=== PATIENT | male | born 1990 | race Hispanic/Latino ===

== ENCOUNTER 2017-11-04 09:43 | Emergency (ER) | payer OTHER ==
[~2017-11-04] VITALS: Ht 185.4 cm; Wt 129.7 kg
[2017-11-04] MEDS ORDERED: KETOROLAC TROMETHAMINE 30 MG/ML VIAL IV STA (10:22)
[2017-11-04] MEDS ORDERED: SODIUM CHLORIDE 0.9% 1000ML 1,000 ML IV SCH (10:30)
[2017-11-04] MEDS ORDERED: MORPHINE SULFATE 2 MG/ML SYR IV STA (11:29)
[2017-11-04] MEDS ORDERED: METRONIDAZOLE 500MG/NS 100ML 100 ML IV ONE (11:30)
[2017-11-04] MEDS ORDERED: CIPROFLOXACIN 400 MG/D5W 200ML 200 ML IV ONE (11:30)
[2017-11-04 12:30] VITALS: BP 169/90
[2017-11-04] MEDS ORDERED: FLAGYL500 MG PO (12:32)
[2017-11-04] MEDS ORDERED: CIPRO500 MG PO (12:32)
[2017-11-04] MEDS ORDERED: ZOFRAN ODT4 MG PO (12:34)
[2017-11-04] MEDS ORDERED: NORCO 7.5-3251 EACH PO (12:36)
== END 2017-11-04 12:53 | disposition home or self-care (01) ==
LOC: FSED 09:43
DX: R10.31 Right lower quadrant pain (principal); R10.32 Left lower quadrant pain; R11.2 Nausea with vomiting, unspecified; K57.32 Diverticulitis of large intestine without perforation or abscess without bleeding; F17.210 Nicotine dependence, cigarettes, uncomplicated
CPT/HCPCS: 74176; 80053; 81003; 85025; 99284; J0744; J1885; J2270

== ENCOUNTER 2017-11-06 01:44 | Inpatient (IN) | payer OTHER ==
[~2017-11-06] VITALS: Ht 185.4 cm; Wt 121.7 kg
[2017-11-06] VITALS (8 sets, daily range): BP systolic 124–140; BP diastolic 57–71
[~2017-11-06 01:44] MED LIST: CIPRO500 MG PO; FLAGYL500 MG PO; NORCO 7.5-3251 EACH PO; ZOFRAN ODT4 MG PO
[2017-11-06] MEDS ORDERED: HYDROMORPHONE 1MG/1ML INJ IV STA (01:57)
[2017-11-06] MEDS ORDERED: PANTOPRAZOLE 40 MG 10ML VIAL IV STA (01:57)
[2017-11-06] MEDS ORDERED: ONDANSETRON HCL INJ 2 MG/ML VIAL IV STA (01:57)
[2017-11-06] MEDS ORDERED: SODIUM CHLORIDE 0.9% 1000ML 1,000 ML IV STA (01:57)
[2017-11-06 02:18] LABS: BASOPHILS # (AUTO) 0.1 (0.0-0.1); BASOPHILS % 0.2 % (0.0-1.0); HEMATOCRIT 39.8 % (38.2-49.6); LYMPHOCYTES # (AUTO) 0.8 (1.0-3.2); LYMPHOCYTES % 3.1 % (18.0-39.1); MEAN CORPUSCULAR HGB CONC 35.2 g/dL (31-35); MEAN CORPUSCULAR VOLUME 85.4 fL (81-99); MONOCYTES # (AUTO) 1.1 (0.2-0.8); MONOCYTES % 4.4 % (4.4-11.3); NEUTROPHILS % 91.7 % (38.7-80.0); PLATELET COUNT 341 x10e3/uL (140-360); RED BLOOD COUNT 4.66 x10e6/uL (4.3-5.7); RED CELL DISTRIBUTION WIDTH 12.1 % (11.7-14.4)
[2017-11-06] MEDS ORDERED: DIATRIZOATE MEGL/DIATRIZOA SOD 30 ML BTL PO ONE (02:19)
[2017-11-06 02:22] LABS: CLARITY,URINE HAZY (CLEAR); COLOR,URINE YELLOW (YELLOW)
[2017-11-06 02:23] LABS: KETONES,URINE 3+ (NEGATIVE); LEUKOCYTE ESTERASE ,URINE TRACE (NEGATIVE); NITRITE,URINE POSITIVE (NEGATIVE); PROTEIN,URINE DIPSTICK 1+ (NEGATIVE)
[2017-11-06 02:24] LABS: BILIRUBIN,URINE 2+ (NEGATIVE); URINE UROBILINOGEN 4 mg/dL (0.2 - 1)
[2017-11-06] MEDS: PIPER-TAZ 3.375 GM 50 ML IV SCH ×4 (02:25→18:14)
[2017-11-06 02:35] LABS: INR 1.16; PROTHROMBIN TIME 13.9 seconds (11.9-14.5)
[2017-11-06 02:37] LABS: EPITHELIAL CELLS,URINE FEW /LPF
[2017-11-06 02:38] LABS: BACTERIA,URINE MODERATE /HPF
[2017-11-06 02:39] LABS: MUCUS,URINE MANY (RARE)
[2017-11-06 02:46] LABS: ALANINE AMINOTRANSFERASE 28 IU/L (0-55); ALBUMIN 3.4 g/dL (3.5-5.0); ALBUMIN/GLOBULIN RATIO 0.8 (0.8-2.0); ALKALINE PHOSPHATASE 85 IU/L (40-150); AMYLASE 21 U/L (25-125); ANION GAP 18.3 mmol/L (8-16); BLOOD UREA NITROGEN 10 mg/dL (7-26); BUN/CREATININE RATIO 13 (6-25); CALCIUM 9.5 mg/dL (8.4-10.2); CARBON DIOXIDE 23 mmol/L (22-29); CHLORIDE 96 mmol/L (98-107); CREATININE, SERUM 0.78 mg/dL (0.72-1.25); EST GLOMERULAR FILTRATION RATE > 60 ML/MIN (60-); GLUCOSE 115 mg/dL (74-118); LIPASE 9 U/L (8-78); MAGNESIUM 1.8 MG/DL (1.3-2.1); POTASSIUM 3.3 mmol/L (3.5-5.1); SODIUM 134 mmol/L (136-145)
[2017-11-06] MEDS: METRONIDAZOLE 500MG/NS 100ML 100 ML IV SCH ×2 (03:05→07:05)
[2017-11-06] MEDS ORDERED: SODIUM CHLORIDE 0.9% 50ML 50 ML ONE (03:11)
[2017-11-06] MEDS ORDERED: IOPAMIDOL 370 MG/ML 200 ML INFUS..BTL INJ ONE (03:11)
[2017-11-06 03:54] LABS: BAND NEUTROPHILS % (MANUAL) 1 %; LYMPHOCYTES % (MANUAL) 3 % (19-48); MONOCYTES % (MANUAL) 3 % (3.4-9.0); NEUTROPHILS % (MANUAL) 93 % (40-74); PLATELET ESTIMATE ADEQUATE; PLATELET MORPHOLOGY COMMENT NORMAL; RBC MORPHOLOGY COMMENT NORMAL
--- NOTE | 2017-11-06 04:04 | Diagnostic Imaging Report ---
CHEST SINGLE (PORTABLE), 11/06/2017 1:57 AM Technique: CHEST SINGLE (PORTABLE) Comparison: None available. Clinical history: Pain Findings: Limited by portable technique and body habitus. Prominent cardiomediastinal silhouette, accentuated by technique. No consolidation or edema. No pleural effusion or pneumothorax. Impression: 1. Lines/Tubes: None 2. No acute abnormality. Signed by: Dr Betty Brcue MD on 11/06/2017 4:01 AM
--- NOTE | 2017-11-06 04:09 | Diagnostic Imaging Report ---
EXAM: CT ABDOMEN/PELVIS W DATE: 11/06/2017 1:57 AM INDICATION: \S\DX'D W/ DIVERTICULITIS, FELT POP NOW SEVERE DIFFUSE PAIN \[id number] \S\[id number] COMPARISON: 07/12/2014, 11/04/2017 TECHNIQUE: The abdomen and pelvis were scanned using a multidetector helical scanner. Coronal and sagittal reformations were obtained. IV Contrast: 100 ml Isovue 300/370 FINDINGS: LOWER THORAX: No consolidations LIVER/BILIARY: No masses. No ductal dilatation. GALLBLADDER: Unremarkable SPLEEN: Unremarkable PANCREAS: Unremarkable ADRENALS: No nodules KIDNEYS: Slightly asymmetric diminished enhancement of the left kidney compared to the right. Mild left pelvocaliectasis without hydronephrosis. GI TRACT: Marked sigmoid wall thickening in area of diverticula. Adjacent inflammatory changes and free fluid (increased from prior) with several scattered foci of extraluminal gas (new from prior, image 70 for example). Mild tethering and reactive thickening of adjacent small bowel and rectum. No bowel obstruction. Normal appendix. VESSELS: Unremarkable PERITONEUM/RETROPERITONEUM: See above LYMPH NODES: Several small reactive inferior mesenteric distribution nodes. REPRODUCTIVE ORGANS/BLADDER: Unremarkable SOFT TISSUES: Unremarkable BONES: No suspicious bone lesions. IMPRESSION: 1. Interval worsening in acute sigmoid diverticulitis with microperforation and reactive segmental proctocolitis. No drainable collection. 2. Delayed left nephrogram and mild left pelvocaliectasis, which may be related to inflammatory changes in the pelvis. Discussed with Physician: JALEEL MARCOS MD at 4:00 AM on 11/06/2017 Signed by: Dr Betty Bruce MD on 11/06/2017 4:28 AM
[2017-11-06] MEDS ORDERED: ZOFRAN ODT4 MG SL (04:17)
[2017-11-06] MEDS ORDERED: NORCO 10-325 T1 EACH PO (04:18)
[2017-11-06] MEDS ORDERED: HYDROMORPHONE 1MG/1ML INJ IV PRN (04:30)
[2017-11-06] MEDS: D5.45%NS/KCL 20MEQ 1,000 ML IV SCH ×2 (05:51→17:10)
[2017-11-06] MEDS: ACETAMINOPHEN 1000 MG/100 ML IV PRN ×2 (06:00→15:17)
[2017-11-06] MEDS ORDERED: VANCOMYCIN 1GM/NS 250 ML 250 ML IV SCH ×2 (08:45→09:00)
[2017-11-06] MEDS: PANTOPRAZOLE 40 MG 10ML VIAL IV SCH (08:45)
[2017-11-06 09:08] LABS: CHOL/HDL RATIO 5.5 (3.9-4.7)
[2017-11-06] MEDS ORDERED: SODIUM CHLORIDE 0.9% 1000ML 1,000 ML IV SCH (09:15)
[2017-11-06] MEDS: HYDROMORPHONE 1MG/1ML INJ IV PRN ×3 (10:53→21:36)
--- NOTE | 2017-11-06 11:30 | History and Physical ---
PRIMARY CARE PHYSICIAN: None. CHIEF COMPLAINT: Abdominal pain. HISTORY OF PRESENT ILLNESS: This is a 27-year-old male with a history of obesity and cigarette use, who has a history of peptic ulcer disease, now developing lower abdominal pain for the past 3 days, went to [facility] urgent care facility and sent home on liquid diet, now patient feel a pop with increasing pain in lower abdomen, therefore came to the hospital. He is found to be septic with acute sigmoid diverticulitis and microperforation of the colon with proctocolitis. He was admitted for further evaluation and management. Patient admits to nausea and vomiting, but no diarrhea, sweats and fever at home. PAST MEDICAL HISTORY: Obesity, cigarette use, peptic ulcer disease. PAST SURGICAL HISTORY: Ear tubes. ALLERGIES: PER ELECTRONIC MEDICAL RECORD. FAMILY HISTORY/SOCIAL HISTORY: Patient is single. One child. Occasional alcohol, smokes quarter pack of cigarette per day. MEDICATIONS: Per electronic medical record. REVIEW OF SYSTEMS: Denies any dizziness, chest pain, shortness of breath, leg pain, back pain, headache or blurred vision. PHYSICAL EXAMINATION VITAL SIGNS: Have been reviewed. T-max is 101.0. GENERAL: A tired-appearing man resting in bed. HEENT: Anicteric. CARDIOVASCULAR: Normal S1 and S2. Rapid heart rate. LUNGS: Moderate breath sounds. ABDOMEN: Soft and nondistended. He has tenderness in the lower quadrant bilaterally. No rebound. EXTREMITIES: No edema or calf tenderness. NEUROLOGICAL: Alert and oriented times 3. Moves all extremities. SKIN: Dry. PSYCHIATRIC: Normal affect. LABS: Reviewed. MEDICATIONS: Reviewed. ASSESSMENT: This is a 27-year-old man with; 1. Sepsis. 2. Acute sigmoid diverticulitis. 3. Microperforation of the colon. 4. Urinary tract infection. 5. Hypokalemia. 6. Proctocolitis. 7. Hyperbilirubinemia. 8. Obesity. PLAN 1. IV antibiotics. We will continue broad-spectrum. We will add vancomycin for full coverage. He is on Flagyl, Zosyn, and we will add vancomycin. 2. Consult GI service and consult infectious disease. 3. I have counseled patient on weight loss and the need for avoidance of over-processed food and use of fiber diet once he is discharged. I have encouraged him to lose 140 pounds once he is discharged. 4. We will obtain labs this afternoon to reassess. 5. We will follow up repeat CT scan imaging. 6. N.p.o. status. 7. Obtain screen for diabetes with hemoglobin A1c and lipid panel. 8. Obtain his TSH. 9. Rehydrate with fluid. 10. Prophylaxis, use SCD and IV PPI. 11. Monitor closely. Move to the ICU if needed. Job#: [id number] SKI
--- NOTE | 2017-11-06 12:58 | Consultation ---
DATE OF CONSULTATION: November 06, 2017 INFECTIOUS DISEASE CONSULTATION ATTENDING PHYSICIAN: Dr. Brian Ramirez. REASON FOR CONSULTATION: Sepsis. Thank you, Dr. Ramirez, for asking me to see this patient. HISTORY: The patient is a 27-year-old man referred for sepsis. He was admitted through the emergency department for acute diverticulitis of the colon with microperforation. He presented to the emergency department with progressive abdominal pain and vomiting. The patient actually developed abdominal pain 3 days earlier and was evaluated at [facility] ER. CT scan of the abdomen during that evaluation showed acute diverticulitis of the sigmoid colon. The patient was later discharged home on oral ciprofloxacin, metronidazole, pain medication, as well as instruction to take a liquid diet for a few days. The patient adhered to the prescription and the instruction with initial improvement. Unfortunately, he noted a left lower abdominal pop and increased pain while straining at stool on the day of admission. Repeat CT scan of the abdomen and pelvis in the emergency room showed interval worsening in acute sigmoid diverticulitis with microperforation and reactive sigmoid proctocolitis. PAST MEDICAL HISTORY: None. PAST SURGICAL HISTORY: None ALLERGIES: NO KNOWN DRUG ALLERGIES. MEDICATIONS: The current antibiotics are Zosyn 3.375 grams IV piggyback q.6 hours, metronidazole 500 mg IV piggyback q.6 hours, and vancomycin 1 gram IV piggyback q.24 hours. FAMILY HISTORY: Noncontributory. SOCIAL HISTORY: He smoked 6 to 7 cigarettes a day until November 02, 2017, when he became ill. REVIEW OF SYSTEMS: The fever has subsided. The patient did not have altered mental status, decreased blood pressure or the difficulty breathing. PHYSICAL EXAMINATION: GENERAL: No acute distress and does not appear toxic. VITALS: T-max 101, pulse 93, respiratory rate 18, blood pressure 129/57. Weight 285 pounds. HEENT: Normocephalic. There is no icterus or injection of conjunctivae. There is no ear or nasal discharge. Moist oral mucosa. No pharyngeal erythema or exudate. NECK: Supple. No lymphadenopathy or meningismus. LUNGS: Clear to auscultation bilaterally. HEART: Normal S1 and S2. Regular. ABDOMEN: Soft with left lower quadrant tenderness. EXTREMITIES: There is no edema, clubbing or cyanosis. SKIN: There is no acute erythema. MAINTENANCE ASSISTANT: Awake, alert and oriented to person, place and time. Nonfocal. LABORATORY DATA AND DIAGNOSTICS: WBC 25,110, hemoglobin 14, platelets 341,000, segment 93, band 1, lymph 3, mono 3. BUN 10, creatinine 0.78. AST 19, ALT 28, alk phos 85, total bilirubin 1.6. Amylase 21, lipase 9. IMPRESSION: 1. Acute sigmoid diverticulitis with microperforation present on admission. 2. Tobacco use disorder. PLAN: 1. Stop vancomycin. 2. Check blood culture results. Cancel urine culture. 3. Smoking cessation counseling has been provided to the patient. Pain control per IM. Surgical input has been noted. Job#: [id number] EV
[2017-11-06 14:40] LABS: BASOPHILS % 0.2 % (0.0-1.0); EOSINOPHILS % 0.2 % (0.0-6.0); HEMATOCRIT 35.4 % (38.2-49.6); HEMOGLOBIN 12.1 g/dL (14.0-18.0); LYMPHOCYTES # (AUTO) 1.6 (1.0-3.2); LYMPHOCYTES % 8.1 % (18.0-39.1); MEAN CORPUSCULAR HGB CONC 34.2 g/dL (31-35); MEAN CORPUSCULAR VOLUME 87.8 fL (81-99); MONOCYTES # (AUTO) 0.8 (0.2-0.8); NEUTROPHILS # (AUTO) 16.6 (2.1-6.9); NEUTROPHILS % 86.8 % (38.7-80.0); PLATELET COUNT 301 x10e3/uL (140-360); RED BLOOD COUNT 4.03 x10e6/uL (4.3-5.7); RED CELL DISTRIBUTION WIDTH 12.2 % (11.7-14.4)
[2017-11-06 14:54] LABS: ANION GAP 14.3 mmol/L (8-16); BLOOD UREA NITROGEN 7 mg/dL (7-26); BUN/CREATININE RATIO 10 (6-25); CALCIUM 8.9 mg/dL (8.4-10.2); CARBON DIOXIDE 27 mmol/L (22-29); CHLORIDE 98 mmol/L (98-107); CREATININE, SERUM 0.72 mg/dL (0.72-1.25); EST GLOMERULAR FILTRATION RATE > 60 ML/MIN (60-); GLUCOSE 94 mg/dL (74-118); MAGNESIUM 1.8 MG/DL (1.3-2.1); POTASSIUM 3.3 mmol/L (3.5-5.1); SODIUM 136 mmol/L (136-145)
[2017-11-07] VITALS (7 sets, daily range): BP systolic 126–149; BP diastolic 57–76
[2017-11-07] MEDS: ACETAMINOPHEN 1000 MG/100 ML IV PRN ×3 (00:05→21:49)
[2017-11-07] MEDS: PIPER-TAZ 3.375 GM 50 ML IV SCH ×5 (00:19→23:45)
[2017-11-07] MEDS: D5.45%NS/KCL 20MEQ 1,000 ML IV SCH ×4 (00:25→21:22)
[2017-11-07] MEDS: HYDROMORPHONE 1MG/1ML INJ IV PRN ×3 (04:16→17:25)
[2017-11-07 05:59] LABS: BASOPHILS % 0.2 % (0.0-1.0); EOSINOPHILS # (AUTO) 0.1 (0.0-0.4); EOSINOPHILS % 0.3 % (0.0-6.0); HEMATOCRIT 36.2 % (38.2-49.6); HEMOGLOBIN 12.1 g/dL (14.0-18.0); LYMPHOCYTES # (AUTO) 0.9 (1.0-3.2); LYMPHOCYTES % 5.6 % (18.0-39.1); MEAN CORPUSCULAR HEMOGLOBIN 29.8 pg (28-32); MEAN CORPUSCULAR HGB CONC 33.4 g/dL (31-35); MEAN CORPUSCULAR VOLUME 89.2 fL (81-99); MONOCYTES % 6.3 % (4.4-11.3); NEUTROPHILS # (AUTO) 14.2 (2.1-6.9); PLATELET COUNT 300 x10e3/uL (140-360); RED BLOOD COUNT 4.06 x10e6/uL (4.3-5.7); RED CELL DISTRIBUTION WIDTH 12.1 % (11.7-14.4)
[2017-11-07 06:47] LABS: ALANINE AMINOTRANSFERASE 19 IU/L (0-55); ALBUMIN 2.8 g/dL (3.5-5.0); ALBUMIN/GLOBULIN RATIO 0.7 (0.8-2.0); ALKALINE PHOSPHATASE 65 IU/L (40-150); ANION GAP 11.3 mmol/L (8-16); BLOOD UREA NITROGEN 6 mg/dL (7-26); BUN/CREATININE RATIO 9 (6-25); CALCIUM 8.9 mg/dL (8.4-10.2); CARBON DIOXIDE 28 mmol/L (22-29); CHLORIDE 97 mmol/L (98-107); CREATININE, SERUM 0.69 mg/dL (0.72-1.25); EST GLOMERULAR FILTRATION RATE > 60 ML/MIN (60-); GLUCOSE 102 mg/dL (74-118); POTASSIUM 3.3 mmol/L (3.5-5.1); SODIUM 133 mmol/L (136-145)
[2017-11-07] MEDS: PANTOPRAZOLE 40 MG 10ML VIAL IV SCH (07:45)
[2017-11-07] MEDS: ONDANSETRON HCL INJ 2 MG/ML VIAL IV PRN (08:47)
[2017-11-07] MEDS ORDERED: POTASSIUM CHLORIDE 20 MEQ TAB CR PO STA (13:01)
[2017-11-08] VITALS (8 sets, daily range): BP systolic 124–141; BP diastolic 62–70
[2017-11-08] MEDS: HYDROMORPHONE 1MG/1ML INJ IV PRN ×6 (01:58→21:21)
[2017-11-08] MEDS: D5.45%NS/KCL 20MEQ 1,000 ML IV SCH ×4 (03:00→23:42)
[2017-11-08 05:13] LABS: BASOPHILS % 0.2 % (0.0-1.0); EOSINOPHILS % 0.2 % (0.0-6.0); HEMATOCRIT 34.2 % (38.2-49.6); HEMOGLOBIN 11.6 g/dL (14.0-18.0); LYMPHOCYTES # (AUTO) 1.4 (1.0-3.2); LYMPHOCYTES % 7.4 % (18.0-39.1); MEAN CORPUSCULAR HGB CONC 33.9 g/dL (31-35); MEAN CORPUSCULAR VOLUME 88.4 fL (81-99); MONOCYTES # (AUTO) 1.1 (0.2-0.8); MONOCYTES % 6.2 % (4.4-11.3); NEUTROPHILS # (AUTO) 15.7 (2.1-6.9); NEUTROPHILS % 85.3 % (38.7-80.0); PLATELET COUNT 344 x10e3/uL (140-360); RED BLOOD COUNT 3.87 x10e6/uL (4.3-5.7); RED CELL DISTRIBUTION WIDTH 12.1 % (11.7-14.4)
[2017-11-08 05:31] LABS: ANION GAP 13.6 mmol/L (8-16); BLOOD UREA NITROGEN 7 mg/dL (7-26); BUN/CREATININE RATIO 10 (6-25); CARBON DIOXIDE 26 mmol/L (22-29); CHLORIDE 98 mmol/L (98-107); CREATININE, SERUM 0.68 mg/dL (0.72-1.25); EST GLOMERULAR FILTRATION RATE > 60 ML/MIN (60-); GLUCOSE 96 mg/dL (74-118); MAGNESIUM 1.4 MG/DL (1.3-2.1); POTASSIUM 3.6 mmol/L (3.5-5.1); SODIUM 134 mmol/L (136-145)
[2017-11-08] MEDS: PIPER-TAZ 3.375 GM 50 ML IV SCH ×3 (06:47→16:39)
[2017-11-08] MEDS: PANTOPRAZOLE 40 MG 10ML VIAL IV SCH (08:13)
[2017-11-08] MEDS: ACETAMINOPHEN 1000 MG/100 ML IV PRN (23:39)
[2017-11-09] VITALS (7 sets, daily range): BP systolic 111–152; BP diastolic 55–84
[2017-11-09] MEDS: PIPER-TAZ 3.375 GM 50 ML IV SCH ×4 (00:29→16:47)
[2017-11-09] MEDS: HYDROMORPHONE 1MG/1ML INJ IV PRN ×5 (01:48→21:17)
[2017-11-09] MEDS: D5.45%NS/KCL 20MEQ 1,000 ML IV SCH ×3 (05:47→21:17)
[2017-11-09 05:54] LABS: BASOPHILS % 0.3 % (0.0-1.0); EOSINOPHILS # (AUTO) 0.2 (0.0-0.4); EOSINOPHILS % 1.1 % (0.0-6.0); HEMOGLOBIN 11.7 g/dL (14.0-18.0); LYMPHOCYTES % 14.3 % (18.0-39.1); MEAN CORPUSCULAR HEMOGLOBIN 29.6 pg (28-32); MEAN CORPUSCULAR HGB CONC 33.4 g/dL (31-35); MEAN CORPUSCULAR VOLUME 88.6 fL (81-99); MONOCYTES # (AUTO) 1.1 (0.2-0.8); MONOCYTES % 7.9 % (4.4-11.3); NEUTROPHILS # (AUTO) 10.7 (2.1-6.9); NEUTROPHILS % 75.6 % (38.7-80.0); PLATELET COUNT 380 x10e3/uL (140-360); RED BLOOD COUNT 3.95 x10e6/uL (4.3-5.7)
[2017-11-09 06:16] LABS: ANION GAP 13.6 mmol/L (8-16); BLOOD UREA NITROGEN 7 mg/dL (7-26); BUN/CREATININE RATIO 11 (6-25); CALCIUM 9.2 mg/dL (8.4-10.2); CARBON DIOXIDE 28 mmol/L (22-29); CHLORIDE 99 mmol/L (98-107); CREATININE, SERUM 0.66 mg/dL (0.72-1.25); EST GLOMERULAR FILTRATION RATE > 60 ML/MIN (60-); GLUCOSE 88 mg/dL (74-118); POTASSIUM 3.6 mmol/L (3.5-5.1); SODIUM 137 mmol/L (136-145)
[2017-11-09] MEDS: PANTOPRAZOLE 40 MG 10ML VIAL IV SCH (08:55)
--- NOTE | 2017-11-09 10:21 | Progress Note ---
DATE: November 08, 2017 MEDICINE PROGRESS NOTE TIME OF SERVICE: 2 p.m. SUBJECTIVE: Overnight, no events. REVIEW OF SYSTEMS: Denies any dizziness, chest pain, nausea, vomiting, fever, chills, sweats, headache. VITAL SIGNS: Reviewed. PHYSICAL EXAMINATION GENERAL APPEARANCE: A tired-appearing man resting in bed. HEENT: Anicteric. CARDIOVASCULAR: Normal S1/S2. LUNGS: Moderate breath sounds. ABDOMEN: Soft, nondistended. Tenderness in the lower quadrants bilaterally. EXTREMITIES: No edema. SKIN: Dry. PSYCHIATRIC: Flat affect. LABS: Reviewed. MEDICATIONS: Reviewed. ASSESSMENT: A 27-year-old man. 1. Sepsis. 2. Acute sigmoid diverticulitis. 3. Microperforation of the colon. 4. Urinary tract infection. 5. Hypokalemia. 6. Proctocolitis. 7. Hyperbilirubinemia. 8. Obesity. PLAN 1. Continue antibiotics. 2. NPO status. 3. Follow up labs. 4. Defer to the GI services regarding advancement of diet. 5. Follow up hemoglobin A1c and lipid panel. 6. Continue current care. Job#: [id number] EV
--- NOTE | 2017-11-09 14:27 | Progress Note ---
DATE: November 09, 2017 MEDICINE PROGRESS NOTE TIME OF SERVICE: 1300. SUBJECTIVE OVERNIGHT: No acute events. REVIEW OF SYSTEMS: Patient denies chest pain or shortness of breath. Denies dizziness, nausea, vomiting, fever, chills, sweats, headache, leg pain. VITAL SIGNS: T 98.4, P 86, respirations 18, BP 138/62, pulse ox 98% on room air. OBJECTIVE GENERAL APPEARANCE: This is a very tired-appearing young man resting in bed. HEENT: Normocephalic without sinus tenderness. Nares patent. Oral mucosa moist and intact. Trachea midline without JVD. CARDIOVASCULAR: S1 and S2 auscultated without extra cardiac sounds auscultated. LUNGS: Bilateral breath sounds CTA. ABDOMEN: Soft and nondistended. Tenderness in left and right lower quadrants. Pain refers to lower quadrants during palpation at upper. EXTREMITIES: No pretibial edema noted. Moves all 4. SKIN: Dry. PSYCHIATRIC: Flat affect. NEUROLOGICAL: Alert and oriented x3. LAB: Sodium 137, potassium 3.6, chloride 99, CO2 28, gap 13.6, BUN 7, creatinine 0.66. WBC reduced at 14.09 this day. H\T\H 11.7 and 35. Platelet count 380. MEDICATIONS 1. PRN Dilaudid q.3 h. as needed for pain. 2. PRN Tylenol as needed for pain. 3. IV Zosyn q.6. 4. IV Protonix 40 mg daily. 5. D5-1/2 NS with 20 of potassium at 150 mL an hour. 6. PRN Zofran. ASSESSMENT AND PLAN: This is a 27-year-old man with 1. Sepsis. Continue IV antibiotics. 2. Acute sigmoid diverticulitis with a microperforation of the colon. Surgical consult noted. Defer to GI services. Continue to monitor. 3. Urinary tract infection. IV antibiotics. 4. Hypokalemia. Will monitor and replace as needed. 5. Proctocolitis. 6. Hyperbilirubinemia. The patient with elevated cholesterol at 202, triglycerides in normal range at 81. TLC treatment as outpatient. 7. Obesity. Caloric restriction as outpatient. 8. Prophylaxis. Patient ambulating ad stas plus PPI. 9. Disposition. Patient with reports of improved pain control alternating acetaminophen and Dilaudid. Continue IV fluids and close monitoring. Dictated by: Guanakito Ragsdale NP Job#: [id number] ROSETTA
[2017-11-10] VITALS (8 sets, daily range): BP systolic 127–148; BP diastolic 60–84
[2017-11-10] MEDS: PIPER-TAZ 3.375 GM 50 ML IV SCH ×5 (00:40→23:58)
[2017-11-10] MEDS: HYDROMORPHONE 1MG/1ML INJ IV PRN ×4 (01:22→17:25)
[2017-11-10] MEDS: D5.45%NS/KCL 20MEQ 1,000 ML IV SCH ×4 (05:18→20:17)
[2017-11-10 05:43] LABS: CLARITY,URINE CLEAR (CLEAR); COLOR,URINE YELLOW (YELLOW); LEUKOCYTE ESTERASE ,URINE NEGATIVE (NEGATIVE); NITRITE,URINE NEGATIVE (NEGATIVE)
[2017-11-10 05:44] LABS: BILIRUBIN,URINE NEGATIVE (NEGATIVE); KETONES,URINE NEGATIVE (NEGATIVE); PROTEIN,URINE DIPSTICK NEGATIVE (NEGATIVE); URINE UROBILINOGEN 0.2 mg/dL (0.2 - 1)
[2017-11-10 05:47] LABS: BACTERIA,URINE RARE /HPF; WBC,URINE (MAN) 0-5 /HPF (0-5)
[2017-11-10 05:59] LABS: BASOPHILS % 0.3 % (0.0-1.0); EOSINOPHILS # (AUTO) 0.2 (0.0-0.4); EOSINOPHILS % 1.1 % (0.0-6.0); HEMATOCRIT 35.1 % (38.2-49.6); HEMOGLOBIN 11.9 g/dL (14.0-18.0); LYMPHOCYTES % 13.7 % (18.0-39.1); MEAN CORPUSCULAR HEMOGLOBIN 29.8 pg (28-32); MEAN CORPUSCULAR HGB CONC 33.9 g/dL (31-35); MONOCYTES # (AUTO) 1.1 (0.2-0.8); MONOCYTES % 7.6 % (4.4-11.3); NEUTROPHILS # (AUTO) 10.9 (2.1-6.9); NEUTROPHILS % 76.4 % (38.7-80.0); PLATELET COUNT 439 x10e3/uL (140-360); RED BLOOD COUNT 3.99 x10e6/uL (4.3-5.7)
[2017-11-10 06:23] LABS: ANION GAP 15.1 mmol/L (8-16); BLOOD UREA NITROGEN 7 mg/dL (7-26); BUN/CREATININE RATIO 10 (6-25); CALCIUM 9.5 mg/dL (8.4-10.2); CARBON DIOXIDE 27 mmol/L (22-29); CHLORIDE 98 mmol/L (98-107); CREATININE, SERUM 0.72 mg/dL (0.72-1.25); EST GLOMERULAR FILTRATION RATE > 60 ML/MIN (60-); GLUCOSE 90 mg/dL (74-118); POTASSIUM 4.1 mmol/L (3.5-5.1); SODIUM 136 mmol/L (136-145)
[2017-11-10 07:27] LABS: EOSINOPHILS % (MANUAL) 1 % (0-7); LYMPHOCYTES % (MANUAL) 19 % (19-48); MONOCYTES % (MANUAL) 4 % (3.4-9.0); NEUTROPHILS % (MANUAL) 73 % (40-74)
[2017-11-10 07:28] LABS: PLATELET ESTIMATE ADEQUATE; PLATELET MORPHOLOGY COMMENT NORMAL; RBC MORPHOLOGY COMMENT NORMAL
[2017-11-10 07:29] LABS: ANISOCYTOSIS SLIGHT
[2017-11-10] MEDS: ACETAMINOPHEN 1000 MG/100 ML IV PRN (07:35)
[2017-11-10] MEDS: PANTOPRAZOLE 40 MG 10ML VIAL IV SCH (09:27)
[2017-11-11] VITALS (7 sets, daily range): BP systolic 108–154; BP diastolic 57–98
[2017-11-11] MEDS: TRAMADOL/APAP 37.5MG-325MG TAB PO PRN (00:13)
[2017-11-11] MEDS: HYDROMORPHONE 1MG/1ML INJ IV PRN ×3 (02:20→15:00)
[2017-11-11] MEDS: D5.45%NS/KCL 20MEQ 1,000 ML IV SCH ×3 (05:46→21:08)
[2017-11-11] MEDS: PIPER-TAZ 3.375 GM 50 ML IV SCH ×4 (05:46→23:55)
[2017-11-11 05:50] LABS: BASOPHILS # (AUTO) 0.1 (0.0-0.1); BASOPHILS % 0.4 % (0.0-1.0); EOSINOPHILS # (AUTO) 0.2 (0.0-0.4); EOSINOPHILS % 1.5 % (0.0-6.0); HEMATOCRIT 37.4 % (38.2-49.6); HEMOGLOBIN 12.4 g/dL (14.0-18.0); LYMPHOCYTES # (AUTO) 2.6 (1.0-3.2); LYMPHOCYTES % 21.8 % (18.0-39.1); MEAN CORPUSCULAR HEMOGLOBIN 29.2 pg (28-32); MEAN CORPUSCULAR HGB CONC 33.2 g/dL (31-35); MEAN CORPUSCULAR VOLUME 88.2 fL (81-99); MONOCYTES # (AUTO) 0.8 (0.2-0.8); MONOCYTES % 6.5 % (4.4-11.3); NEUTROPHILS # (AUTO) 8.1 (2.1-6.9); NEUTROPHILS % 68.7 % (38.7-80.0); PLATELET COUNT 472 x10e3/uL (140-360); RED BLOOD COUNT 4.24 x10e6/uL (4.3-5.7); RED CELL DISTRIBUTION WIDTH 12.1 % (11.7-14.4)
[2017-11-11 06:22] LABS: ALANINE AMINOTRANSFERASE 35 IU/L (0-55); ALBUMIN 2.9 g/dL (3.5-5.0); ALBUMIN/GLOBULIN RATIO 0.6 (0.8-2.0); ALKALINE PHOSPHATASE 61 IU/L (40-150); BLOOD UREA NITROGEN 7 mg/dL (7-26); BUN/CREATININE RATIO 10 (6-25); CALCIUM 9.4 mg/dL (8.4-10.2); CARBON DIOXIDE 28 mmol/L (22-29); CHLORIDE 100 mmol/L (98-107); CREATININE, SERUM 0.69 mg/dL (0.72-1.25); EST GLOMERULAR FILTRATION RATE > 60 ML/MIN (60-); GLUCOSE 82 mg/dL (74-118); SODIUM 137 mmol/L (136-145)
[2017-11-11 07:37] LABS: ANISOCYTOSIS SLIGHT; EOSINOPHILS % (MANUAL) 2 % (0-7); LYMPHOCYTES % (MANUAL) 22 % (19-48); MONOCYTES % (MANUAL) 8 % (3.4-9.0); NEUTROPHILS % (MANUAL) 66 % (40-74); PLATELET ESTIMATE SLIGHTLY INCREASED; PLATELET MORPHOLOGY COMMENT NORMAL; RBC MORPHOLOGY COMMENT NORMAL
--- NOTE | 2017-11-11 07:42 | Progress Note ---
DATE: November 11, 2017 TIME: 7:17 a.m. OVERNIGHT: Feeling a little better. Less diarrhea. REVIEW OF SYSTEMS: Denies any dizziness or chest pain. PHYSICAL EXAMINATION VITAL SIGNS: Reviewed. GENERAL: A tired-appearing man resting in bed. HEENT: Anicteric. CARDIOVASCULAR: Normal S1 and S2. LUNGS: Moderate breath sounds. ABDOMEN: Soft, nontender and nondistended. EXTREMITIES: No edema. SKIN: Dry. PSYCHIATRIC: Normal affect. LABS: Reviewed. MEDICATIONS: Reviewed. ASSESSMENT: A 27-year-old man with: 1. Sepsis. 2. Acute sigmoid diverticulitis. 3. Microperforation of the colon. 4. Urinary tract infection. 5. Hypokalemia. 6. Proctocolitis. 7. Hyperbilirubinemia. 8. Obesity. PLAN 1. Continue antibiotics. 2. The patient is on a clear liquid diet per the GI service. 3. Hemoglobin A1c is 4.8, LDL 149 and triglycerides 81. 4. The patient is improving. Will continue restricted diet. 5. Discharge planning. Possible discharge home tomorrow. Will need repeat CT scan. Obtain repeat CT scan tomorrow morning. Job#: [id number] JULIANA
[2017-11-11] MEDS: PANTOPRAZOLE 40 MG 10ML VIAL IV SCH (09:16)
[2017-11-12] VITALS (8 sets, daily range): BP systolic 116–134; BP diastolic 57–73
[2017-11-12] MEDS: HYDROMORPHONE 1MG/1ML INJ IV PRN ×3 (01:40→15:52)
[2017-11-12] MEDS: D5.45%NS/KCL 20MEQ 1,000 ML IV SCH ×2 (04:22→21:47)
[2017-11-12] MEDS ORDERED: DIATRIZOATE MEGL/DIATRIZOA SOD 30 ML BTL PO ONE (04:34)
[2017-11-12] MEDS: PIPER-TAZ 3.375 GM 50 ML IV SCH ×4 (05:29→23:42)
[2017-11-12] MEDS ORDERED: IOPAMIDOL 370 MG/ML 200 ML INFUS..BTL INJ ONE (05:57)
[2017-11-12] MEDS ORDERED: SODIUM CHLORIDE 0.9% 50ML 50 ML ONE (05:57)
[2017-11-12 05:58] LABS: BASOPHILS # (AUTO) 0.1 (0.0-0.1); BASOPHILS % 0.5 % (0.0-1.0); EOSINOPHILS # (AUTO) 0.2 (0.0-0.4); HEMATOCRIT 37.9 % (38.2-49.6); HEMOGLOBIN 12.4 g/dL (14.0-18.0); LYMPHOCYTES # (AUTO) 2.8 (1.0-3.2); LYMPHOCYTES % 22.4 % (18.0-39.1); MEAN CORPUSCULAR HEMOGLOBIN 29.4 pg (28-32); MEAN CORPUSCULAR HGB CONC 32.7 g/dL (31-35); MEAN CORPUSCULAR VOLUME 89.8 fL (81-99); MONOCYTES # (AUTO) 0.7 (0.2-0.8); NEUTROPHILS # (AUTO) 8.3 (2.1-6.9); NEUTROPHILS % 67.6 % (38.7-80.0); PLATELET COUNT 550 x10e3/uL (140-360); RED BLOOD COUNT 4.22 x10e6/uL (4.3-5.7); RED CELL DISTRIBUTION WIDTH 12.1 % (11.7-14.4)
[2017-11-12 06:26] LABS: ANION GAP 14.4 mmol/L (8-16); BLOOD UREA NITROGEN 6 mg/dL (7-26); BUN/CREATININE RATIO 8 (6-25); CALCIUM 9.6 mg/dL (8.4-10.2); CARBON DIOXIDE 28 mmol/L (22-29); CHLORIDE 100 mmol/L (98-107); CREATININE, SERUM 0.77 mg/dL (0.72-1.25); EST GLOMERULAR FILTRATION RATE > 60 ML/MIN (60-); GLUCOSE 86 mg/dL (74-118); POTASSIUM 4.4 mmol/L (3.5-5.1); SODIUM 138 mmol/L (136-145)
[2017-11-12] MEDS ORDERED: LEVAQUIN500 MG PO (06:59)
[2017-11-12] MEDS ORDERED: PANTOPRAZOLE SO40 MG PO (06:59)
[2017-11-12] MEDS ORDERED: FLAGYL500 MG PO (06:59)
--- NOTE | 2017-11-12 07:40 | Diagnostic Imaging Report ---
PROCEDURE: CT ABDOMEN AND PELVIS WITH CONTRAST TECHNIQUE: The abdomen and pelvis were scanned utilizing a multidetector helical scanner from the diaphragm to the lesser trochanter after the IV administration of 100 cc of Isovue 370 and the oral administration of 900 cc of gastrograffin/water. Coronal and sagittal multiplanar reformations were obtained. COMPARISON: CT Abdomen/Pelvis 11/06/17. INDICATIONS: RECHECK ON PERFORATION FINDINGS: LOWER THORAX: Subsegmental atelectasis at the lung bases. HEPATOBILIARY: No focal hepatic lesions. No biliary ductal dilatation. SPLEEN: No splenomegaly. PANCREAS: No focal masses or ductal dilatation. ADRENALS: No adrenal nodules. KIDNEYS/URETERS: No hydronephrosis, stones, or solid mass lesions. PELVIC ORGANS/BLADDER: Unremarkable. PERITONEUM / RETROPERITONEUM: No free air or fluid. LYMPH NODES: No lymphadenopathy. VESSELS: Prominent inferior mesenteric lymph nodes, likely reactive. GI TRACT: Persistent sigmoid colonic diverticulosis with wall thickening and surrounding inflammatory changes of diverticulitis. Extraluminal fluid is again noted. There is now interval development of a 2.1 x 4.6 x 2.3 cm (AP x TV x SI) extraluminal air fluid collection in the left pelvis. Adjacent mild reactive inflammatory changes of distal ileal loops. No evidence of bowel obstruction. Normal appendix. BONES AND SOFT TISSUES: No acute bony findings. IMPRESSION: Acute perforated sigmoid diverticulitis with interval development of left pelvic air-fluid collection measuring up to 4.6 cm consistent with abscess. 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 Dictated by: FREDDIE SHAFER M.D. on 11/12/2017 at 7:45 Electronically approved by: FREDDIE SHAFER M.D. on 11/12/2017 at 7:45
--- NOTE | 2017-11-12 08:11 | Discharge Summary ---
PRINCIPAL DIAGNOSES 1. Sepsis. 2. Acute sigmoid diverticulitis. 3. Microperforation of the colon. 4. Urinary tract infection. 5. Hypokalemia. 6. Proctocolitis. 7. Hyperbilirubinemia. 8. Obesity. SECONDARY DIAGNOSIS: Obesity. CHIEF COMPLAINT: Abdominal pain. HISTORY OF PRESENT ILLNESS: A 27-year-old man with abdominal pain and diarrhea. Please refer to the H and P for further details. HOSPITAL COURSE: The patient was found to have sepsis and acute sigmoid diverticulitis with microperforation of the colon. Made n.p.o. and started on antibiotics. Evaluated by surgery and GI services. Now, he was advanced to a liquid diet. Tolerating diet and doing well. No pain. Repeat CT scan is pending. Urinary tract infection was treated with antibiotics. Hypokalemia was also replaced. He had proctocolitis and hyperbilirubinemia and obesity. The patient is doing better. His hemoglobin A1c was 4.8. Does not have diabetes. LDL was 149. He is doing better and currently appropriate for discharge once repeat CT scan is obtained. DISCHARGE MEDICATIONS: Per electronic medical record and include Flagyl and Levaquin for 7 days. FOLLOWUP 1. With me in 1 week. 2. Follow up with GI services in 2 weeks. CONDITION ON DISCHARGE: Stable and improving. DISCHARGE LOCATION: Home once CT scan imaging has been done and reviewed. ANKUR CELESTE MD Job#: [id number] [place]
--- NOTE | 2017-11-12 08:13 | Progress Note ---
DATE: November 12, 2017 OVERNIGHT: Patient planned for discharge today. However, CT scan is worse, showing a possible abscess. Therefore, the patient will be kept in the hospital. Vancomycin will be added to the Zosyn. The surgical team and GI team will be notified of the findings. He may need surgical management. We will put him back on n.p.o. status and await surgical and GI re-evaluation. Job#: [id number]
[2017-11-12] MEDS: PANTOPRAZOLE 40 MG 10ML VIAL IV SCH (09:01)
[2017-11-12] MEDS: VANCOMYCIN 1GM/NS 250 ML 250 ML IV SCH (09:01)
[2017-11-12] MEDS: ONDANSETRON HCL INJ 2 MG/ML VIAL IV PRN (15:52)
--- NOTE | 2017-11-12 18:33 | Progress Note ---
DATE: November 07, 2017 TIME: 8 a.m. OVERNIGHT: No events. REVIEW OF SYSTEMS: Denies any dizziness, chest pain, nausea, vomiting, fever, chills, sweats, headache. PHYSICAL EXAMINATION VITAL SIGNS: Reviewed. GENERAL: A tired-appearing man resting in bed. HEENT: Anicteric. CARDIOVASCULAR: Normal S1 and S2. LUNGS: Moderate breath sounds. ABDOMEN: Soft, nondistended. Tenderness in the lower quadrants is present. EXTREMITIES: No edema. SKIN: Dry. PSYCHIATRIC: Flat affect. LABS: Reviewed. MEDICATIONS: Reviewed. ASSESSMENT: A 27-year-old man. 1. Sepsis. 2. Acute sigmoid diverticulitis with microperforation of the colon. 3. Urinary tract infection. 4. Hypokalemia. 5. Proctocolitis. 6. Hyperbilirubinemia. 7. Obesity. PLAN 1. Continue antibiotics. 2. Continue n.p.o. status. 3. Follow up labs. 4. Follow up GI recommendations. Job#: [id number]
[2017-11-13] VITALS (8 sets, daily range): BP systolic 108–135; BP diastolic 54–72
[2017-11-13] MEDS: HYDROMORPHONE 1MG/1ML INJ IV PRN ×2 (00:17→06:30)
[2017-11-13 06:01] LABS: BASOPHILS # (AUTO) 0.1 (0.0-0.1); BASOPHILS % 0.4 % (0.0-1.0); EOSINOPHILS # (AUTO) 0.3 (0.0-0.4); EOSINOPHILS % 1.6 % (0.0-6.0); HEMATOCRIT 35.9 % (38.2-49.6); LYMPHOCYTES # (AUTO) 3.3 (1.0-3.2); LYMPHOCYTES % 20.8 % (18.0-39.1); MEAN CORPUSCULAR HEMOGLOBIN 29.5 pg (28-32); MEAN CORPUSCULAR HGB CONC 33.4 g/dL (31-35); MEAN CORPUSCULAR VOLUME 88.2 fL (81-99); MONOCYTES # (AUTO) 0.9 (0.2-0.8); MONOCYTES % 5.5 % (4.4-11.3); NEUTROPHILS # (AUTO) 11.3 (2.1-6.9); NEUTROPHILS % 70.6 % (38.7-80.0); PLATELET COUNT 590 x10e3/uL (140-360); RED BLOOD COUNT 4.07 x10e6/uL (4.3-5.7); RED CELL DISTRIBUTION WIDTH 12.2 % (11.7-14.4)
[2017-11-13 06:20] LABS: ANION GAP 15.9 mmol/L (8-16); BLOOD UREA NITROGEN 6 mg/dL (7-26); BUN/CREATININE RATIO 8 (6-25); CALCIUM 9.3 mg/dL (8.4-10.2); CARBON DIOXIDE 27 mmol/L (22-29); CHLORIDE 100 mmol/L (98-107); CREATININE, SERUM 0.77 mg/dL (0.72-1.25); EST GLOMERULAR FILTRATION RATE > 60 ML/MIN (60-); GLUCOSE 81 mg/dL (74-118); POTASSIUM 3.9 mmol/L (3.5-5.1); SODIUM 139 mmol/L (136-145)
[2017-11-13] MEDS: D5.45%NS/KCL 20MEQ 1,000 ML IV SCH ×3 (06:30→18:32)
[2017-11-13] MEDS: VANCOMYCIN 1GM/NS 250 ML 250 ML IV SCH (08:22)
[2017-11-13] MEDS: PANTOPRAZOLE 40 MG 10ML VIAL IV SCH (08:22)
--- NOTE | 2017-11-13 12:49 | Progress Note ---
DATE: SUBJECTIVE: Patient is doing well overnight. He is tolerating liquid diet well with no issues. He has been afebrile and has very minimal pain to his abdomen. Patient opted to have antibiotic regimen instead of any surgical intervention or any abscess drainage after speaking to the consultants. On discharge the patient wants to be on oral antibiotics and follow up with the consultants. VITAL SIGNS: Temperature is 96.7, pulse 62, respiratory rate is 20, blood pressure 116/54, pulse ox 100% on room air. LAB FINDINGS: Show a white count of 16. Yesterday white count was 12. Hemoglobin is 12, hematocrit is 35.9, platelets of 590. Coagulation: PT 13.9, INR 1.1, PTT 28. Chemistry: Sodium 139, potassium 3.9, chloride 100, bicarb 27, anion gap of 15, BUN is 6, creatinine is 0.77, glucose is 81, calcium 9.3. Albumin is 2.9. Lipase level was 9. TSH was 2.2. Urinalysis currently is negative. MICROBIOLOGY: Blood cultures were negative. Urine cultures were negative. IMAGING STUDIES: CT abdomen and pelvis on admission on November 06, 2017, showed interval worsening of acute sigmoid diverticulitis with microperforation and reactive segmental proctocolitis. No drainable collection seen. Repeat CT abdomen and pelvis on November 12, 2017, impression shows acute perforated sigmoid diverticulitis with interval development of left pelvic air-fluid collection measuring up to 4.6 cm consistent with abscess. Imaging studies are much, much worse than the previous CT. 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 PHYSICAL EXAMINATION GENERAL: Not in acute distress. Alert, oriented x3, cooperative on exam. HEENT: Head: Normocephalic, atraumatic. Eyes: Pupils equally round and reactive to light bilaterally. Extraocular movements intact bilaterally. Neck was supple with good range of motion. Throat: No evidence of any erythema or exudates in the posterior pharynx. Has poor dentition. PULMONARY: Clear to auscultation bilaterally. No wheezing, no rales, no rhonchi, no crackles appreciated. CARDIOVASCULAR: Positive S1/S2. No murmurs, rubs or gallops appreciated. ABDOMEN: Soft, nondistended, nontender to palpation. Bowel sounds present. MUSCULOSKELETAL: Strength is 5/5 throughout. No evidence of any musculoskeletal deficit on examination. No weakness appreciated. NEUROLOGICAL: Cranial nerves 2-12 grossly intact. No evidence of any neurological deficit on exam. SKIN: Intact. Warm to touch. Good capillary refill. PSYCHIATRIC: Normal affect, normal mood. EXTREMITIES: No edema. Good range of motion throughout. ASSESSMENT 1. Sepsis secondary to acute sigmoid diverticulitis with microperforation of the colon. 2. Morbidly obese. 3. Proctocolitis. PLAN: At this time patient had repeat CT abdomen and pelvis done yesterday, showed worsening findings compared to the initial CT abdomen and pelvis on admission. CT from yesterday shows evidence of an abscess, concerning of also possible fistula connection to the sigmoid colon. General Surgery was consulted to come evaluate the patient, and at this time what was recommended is the patient is to maintain on IV antibiotics for the next 48 hours and continue with clear-liquid diet. Patient is refusing any surgical intervention as well as drainage of the abscess at this time. Due to that fact, the patient will continue on IV antibiotics and see if there is any improvement whatsoever. His white count is elevated today at 15. He is afebrile, and his vital signs are stable. At this time will continue with IV antibiotics, vancomycin, and antibiotic management as per Infectious Disease. May need to start him back on Zosyn due to worsening white count. GI and General Surgery are following. Will maintain on clear-liquid diet at this time and advance it once General Surgery makes their final recommendations. Once again, patient refuses any surgical intervention or any drained abscess at this time. Otherwise, will continue with same plan of care. Job#: [id number] EV
[2017-11-13] MEDS: PIPERACILLIN/TAZOBAC 3.375 GM in SODIUM CHLORIDE 0.9% 100 ML IV SCH ×2 (14:06→22:11)
[2017-11-13] MEDS: TRAMADOL/APAP 37.5MG-325MG TAB PO PRN (14:06)
[2017-11-14] VITALS: BP 121/65
[2017-11-14] MEDS ORDERED: METRONIDAZOLE 750MG/NS 150ML 150 ML IV STA (01:16)
[2017-11-14 04:00] VITALS: BP 105/69
[2017-11-14] MEDS: D5.45%NS/KCL 20MEQ 1,000 ML IV SCH (04:32)
[2017-11-14] MEDS: METRONIDAZOLE 500MG/NS 100ML 100 ML IV SCH ×2 (05:10→12:27)
[2017-11-14] MEDS: PIPERACILLIN/TAZOBAC 3.375 GM in SODIUM CHLORIDE 0.9% 100 ML IV SCH (05:41)
[2017-11-14 05:51] LABS: BASOPHILS # (AUTO) 0.1 (0.0-0.1); BASOPHILS % 0.3 % (0.0-1.0); EOSINOPHILS # (AUTO) 0.2 (0.0-0.4); EOSINOPHILS % 1.6 % (0.0-6.0); HEMATOCRIT 38.4 % (38.2-49.6); HEMOGLOBIN 12.8 g/dL (14.0-18.0); MEAN CORPUSCULAR HEMOGLOBIN 29.4 pg (28-32); MEAN CORPUSCULAR HGB CONC 33.3 g/dL (31-35); MEAN CORPUSCULAR VOLUME 88.3 fL (81-99); MONOCYTES # (AUTO) 0.8 (0.2-0.8); NEUTROPHILS # (AUTO) 10.9 (2.1-6.9); PLATELET COUNT 594 x10e3/uL (140-360); RED BLOOD COUNT 4.35 x10e6/uL (4.3-5.7)
[2017-11-14 07:35] VITALS: BP 113/57
[2017-11-14 07:45] VITALS: BP 113/57
[2017-11-14] MEDS: VANCOMYCIN 1GM/NS 250 ML 250 ML IV SCH (09:35)
[2017-11-14] MEDS: PANTOPRAZOLE 40 MG 10ML VIAL IV SCH (09:35)
[2017-11-14 11:32] VITALS: BP 143/73
--- NOTE | 2017-11-14 15:33 | Discharge Summary ---
FINAL DISCHARGE DIAGNOSES 1. Sepsis secondary to acute sigmoid diverticulitis with microperforation of the colon with an underlying abscess. 2. Morbidly obese. 3. Proctocolitis. CONSULTANTS: General surgery, GI and infectious disease. VITAL SIGNS: Temperature is 96.3, pulse is 86, respiratory rate is 18, blood pressure 142/73, pulse ox 98% on room air. LAB FINDINGS: Show white count 15, hemoglobin is 12.8, hematocrit 38, and platelets are 594,000. Coagulation: PT 13.9, INR 1.1 and PTT 28. Chemistry: Sodium 139, potassium 3.9, chloride 100, bicarb 27, anion gap of 15, BUN 6, creatinine 0.77. Urinalysis was found to be negative. Blood cultures were negative. Urine cultures were negative. IMAGING STUDIES: Chest x-ray on admission showed no acute abnormality. CT of the abdomen and pelvis on admission showed some interval worsening of the right sigmoid diverticulitis with microperforation, reactive segmental proctocolitis with no drainable collection. Repeat CT of the abdomen and pelvis on November 12, 2017, showed evidence of an acute perforated signal diverticulitis with interval development of a left pelvic area fluid collection measuring 4.6 consistent with an abscess. HOSPITAL COURSE: This is a 27-year-old male morbidly obese who comes into the ED with left lower quadrant abdominal pain. General surgery, GI and ID were consulted. Initial imaging studies showed evidence of acute sigmoid diverticulitis. Patient was IV antibiotics, IV fluids and pain control. Patient improved and was on a clear liquid diet, and advanced to a regular. Patient's pain continued to get worse in which repeat CT of abdomen and pelvis was consistent with an acute perforated sigmoid diverticulitis, but contained with an interval development of a left pelvic air-fluid collection with an abscess of 4.6 cm. In further discussion with general surgery and GI, it was felt that the patient does not need any kind of drainage or any intervention to have this abscess drained, and that this would be a high risk for a fistula. At this time, they recommended oral antibiotics upon discharge. Scripts were already written by general surgery and placed into the chart. ID, general surgery and GI has cleared the patient for discharge. On the day of discharge, vital signs stable. Labs were reviewed and stable. The patient was seen, evaluated and examined thoroughly on the day of discharge. No other complaints. The patient verbalized understanding and agrees with the plan of care to follow up accordingly as an outpatient with his primary care physician in 1 week. General surgery and GI in the next 7-10 days. The patient verbalized understanding, and will follow up accordingly as per general surgery and GI recommendations. MEDICATIONS: See med reconciliation form includin. Flagyl 500 mg 1 tab p.o. t.i.d. for 7 days. 2. Levaquin 500 mg 1 tab p.o. daily. 3. Protonix 40 mg p.o. daily. DISPOSITION: Home. CONDITION: Stable. DIET: Heart-healthy. FOLLOWUP: With your primary care physician in 1 week, and GI and general surgeon in 7-10 days. In the event of any worsening symptoms, the patient was advised to come back to the ED for further evaluation. Discharge summary took greater than 35 minutes. ILIR GREER MD Job#: [id number] NM
== END 2017-11-14 15:05 | disposition home or self-care (01) | DRG 872 ==
LOC: ER 01:44 → ERHOLD 04:20 → MED/SURG3 05:34
PROVIDERS: ADMIT Internal Medicine; ATTEND Internal Medicine
DX: A41.9 Sepsis, unspecified organism (principal); K57.20 Diverticulitis of large intestine with perforation and abscess without bleeding; N39.0 Urinary tract infection, site not specified; K51.30 Ulcerative (chronic) rectosigmoiditis without complications; E87.6 Hypokalemia; E80.6 Other disorders of bilirubin metabolism; E66.9 Obesity, unspecified; Z72.0 Tobacco use; Z68.37 Body mass index [BMI] 37.0-37.9, adult; R35.0 Frequency of micturition; K27.9 Peptic ulcer, site unspecified, unspecified as acute or chronic, without hemorrhage or perforation
CPT/HCPCS: 36415; 71045; 74177; 80048; 80053; 80061; 81001; 82150; 83036; 83605; 83690; 83735; 84443; 85025; 85610; 85730; 87040; 87086; 96361; 96367; 96374; 99284; J1170; J2405; J2543; J3370; J7030; J7050; Q9967

== ENCOUNTER → 2017-12-26 | Outpatient (CLI) | payer OTHER ==
[~2017-12-26] MED LIST changes: +DIATRIZOATE MEGL/DIATRIZOA SOD 30 ML BTL PO ONE; +IOPAMIDOL 370 MG/ML 200 ML INFUS..BTL INJ ONE; +LEVAQUIN500 MG PO; +NORCO 10-325 T1 EACH PO; +PANTOPRAZOLE SO40 MG PO; +SODIUM CHLORIDE 0.9% 50ML 50 ML ONE; +ZOFRAN ODT4 MG SL
--- NOTE | 2017-12-26 19:19 | Diagnostic Imaging Report ---
EXAM: CT Abdomen and Pelvis WITH contrast INDICATION: \[id number] \[id number] \S\F/U DIVERTICULITIS COMPARISON: CT dated 11/12/2017 TECHNIQUE: Abdomen and pelvis were scanned utilizing a multidetector helical scanner from the lung base to the pubic symphysis after administration of IV contrast. Coronal and sagittal reformations were obtained. Dose modulation, iterative reconstruction, and/or weight based adjustment of the mA/kV was utilized to reduce the radiation dose to as low as reasonably achievable. Routine protocol was performed. Scan was performed when during portal venous phase. IV CONTRAST: 100 mL of Isovue-370 ORAL CONTRAST: Gastroview COMPLICATIONS: None RADIATION DOSE: Total DLP: 857.86 mGy*cm Estimated effective dose: (DLP x 0.015 x size factor) mSv CTDIvol has been reviewed. It is below the limits set by the Radiation Protocol Committee (RPC). FINDINGS: LINES and TUBES: None. LOWER THORAX: Unremarkable HEPATOBILIARY: No focal hepatic lesions. No biliary ductal dilation. GALLBLADDER: No radio-opaque stones or sludge. No wall thickening. SPLEEN: No splenomegaly. PANCREAS: No focal masses or ductal dilatation. ADRENALS: No adrenal nodules KIDNEYS/URETERS: Kidneys enhance symmetrically. No hydronephrosis. No cystic or solid mass lesions. No stones. GI TRACT: No evidence of bowel obstruction. Persistent but decreased perisigmoid inflammation and sigmoid wall thickening. 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 Appendix is normal. PELVIC ORGANS/BLADDER: Unremarkable. LYMPH NODES: No lymphadenopathy. VESSELS: Unremarkable. PERITONEUM / RETROPERITONEUM: No free air or fluid. BONES: Unremarkable. SOFT TISSUES: Unremarkable. IMPRESSION: Persistent but decreased perisigmoid inflammation and wall thickening, representing improved diverticulitis. 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 Findings discussed with Dr. Mcguire at 7:13 PM, on 12/26/2017. Signed by: Dr. Gianfranco Marina MD on 12/26/2017 7:15 PM
== END ==
LOC: CT 17:23
PROVIDERS: ATTEND Surgery
DX: K57.32 Diverticulitis of large intestine without perforation or abscess without bleeding (principal)
CPT/HCPCS: 74177; Q9967

== ENCOUNTER → 2018-01-16 | Outpatient (CLI) | payer OTHER ==
[~2018-01-16] MED LIST changes: +DIATRIZOATE MEGL/DIATRIZOA SOD 120 ML BTL PO ONE; -IOPAMIDOL 370 MG/ML 200 ML INFUS..BTL INJ ONE; -SODIUM CHLORIDE 0.9% 50ML 50 ML ONE
--- NOTE | 2018-01-16 18:09 | Diagnostic Imaging Report ---
EXAM: FL BARIUM ENEMA SINGLE CONTRAST INDICATION: Evaluate extent of diverticula COMPARISON: CT Abdomen/Pelvis 12/26/2017. RADIATION DOSE: Fluoroscopy Time: 2 min and 14 seconds. Technique: Single contrast barium enema was performed to evaluate for extent of colonic diverticulosis. The rectum, sigmoid colon, descending, transverse, and distal ascending colon was opacified. FINDINGS: There is extensive mid to distal sigmoid diverticulosis, extending for an estimated distance of 15-20 cm. No diverticulosis is seen proximal to the sigmoid colon at the sacral promontory. No diverticulosis is seen in the descending or transverse colon. IMPRESSION: Extensive sigmoid diverticulosis as characterized above. Signed by: Dr. Corey Mckeon MD on 01/16/2018 6:06 PM
== END ==
LOC: DX 09:05
PROVIDERS: ATTEND Surgery
DX: K57.20 Diverticulitis of large intestine with perforation and abscess without bleeding (principal)
CPT/HCPCS: 74280; Q9963

== ENCOUNTER 2019-09-14 22:37 | Emergency (ER) | payer SELFPAY ==
[~2019-09-14] VITALS: Ht 185.4 cm; Wt 127.0 kg
[~2019-09-14 22:37] MED LIST changes: -DIATRIZOATE MEGL/DIATRIZOA SOD 120 ML BTL PO ONE; -DIATRIZOATE MEGL/DIATRIZOA SOD 30 ML BTL PO ONE
--- OUTSIDE RECORDS SUMMARY | 2019-09-14 22:41 | XMS REPORT | Clinical Summary ---
Author Author [facility] Address Unknown Phone Unavailable Care Team Providers Care Company Pilot Name Role Phone PCP Unavailable Allergies No Known Allergies Medications Not on file Active Problems Not on file Social History Date Tobacco Use Types Packs/Day Years Used Never Assessed Sex Assigned at Date Recorded Not on file Industry Job Start Date Occupation Not on file Not on file Not on file Travel End Travel History Travel Start No recent travel history available. Last Filed Vital Signs Not on file Plan of Treatment Not on file Results Not on fileafter 09/13/2018 Insurance Payer Benefit Subscriber ID Type Phone Address Plan / Group [facility] xxxxxxxxx CARE CHARTER
--- NOTE | 2019-09-14 23:34 | Diagnostic Imaging Report ---
FOOT LEFT COMPLETE - 3 views HISTORY: Pain COMPARISON: None available. FINDINGS: Bones: No acute displaced fracture. Osseous alignment is within normal limits. Incidentally seen os trigonum. Joints: The joint spaces are well-maintained. Soft tissues: The soft tissues appear unremarkable. IMPRESSION: No acute radiographic abnormality. Signed by: Dr. Gianfranco Marina MD on 09/14/2019 11:31 PM
[2019-09-14] MEDS ORDERED: MORPHINE SULFATE INJ 4 MG/ML INJ 1ML IM STA (23:50)
--- NOTE | 2019-09-14 23:50 | Emergency Department Note ---
History of Present Illnes History of Present Illness Chief Complaint: Extremity Trauma/Pain History of Present Illness This is a 28 year old male presents to the ED for R foot pain after a 140 lb forklift landed on the extremity. . Historian: Patient Arrival Mode: Car Management Tech Required: No Onset (how long ago): hour(s) (3) Radiation: Reports extremity Severity: moderate Onset quality: sudden Timing of current episode: constant Progression: unchanged Chronicity: new Context: Reports trauma/injury Relieving factors: rest Exacerbating factors: movement Associated symptoms: Reports denies other symptoms Treatments prior to arrival: none Past Medical/Family History Physician Review I have reviewed the patient's past medical and family history. Any updates have been documented here. Past Medical History Recent Fever: No Clinical Suspicion of Infectio: No New/Unexplained Change in Ment: No Other Medical History: R SHOULDER DISLOCATED SIGMOID DIVERTICULITIS Other Surgery: TUBES IN EARS Social History Smoking Cessation: Former smoker Counseling Performed: No Alcohol Use: Social Any Illegal Drug Use: No TB Exposure/Symptoms: No Physically hurt or threatened: No Other Last Tetanus: UNKNOWN Any Pre-Existing Lines (PICC,: No Is patient up to date on immun: No Last Flu: NO Last Pneumovax: NO Review of Systems Review of Systems Constitutional: Reports no symptoms EENTM: Reports no symptoms Cardiovascular: Reports no symptoms Respiratory: Reports no symptoms Gastrointestinal: Reports no symptoms Genitourinary: Reports no symptoms Musculoskeletal: Reports muscle pain Integumentary: Reports no symptoms Neurological: Reports no symptoms Psychological: Reports no symptoms Endocrine: Reports no symptoms Hematological/Lymphatic: Reports no symptoms Review of other systems All other systems reviewed and negative. Physical Exam Related Data Allergies: Coded Allergies: No Known Allergies (Unverified , 07/12/14) Triage Vital Signs Vital Signs Date Time Temp Pulse Resp B/P (MAP) Pulse Ox O2 Delivery O2 Flow Rate FiO2 09/14/19 23:11 98.1 88 17 127/69 100 Vital signs reviewed: Yes Physical Exam CONSTITUTIONAL Constitutional: Reports well-developed, Reports well-nourished HENT HENT: Reports normocephalic, Reports atraumatic, Reports oropharynx clear/moist, Reports nose normal HENT L/R: Reports left ext ear normal, Reports right ext ear normal EYES Eyes: Reports PERRL, Reports conjunctivae normal NECK Neck: Reports ROM normal PULMONARY Pulmonary: Reports effort normal, Reports breath sounds normal CARDIOVASCULAR Cardiovascular: Reports regular rhythm, Reports heart sounds normal, Reports capillary refill normal, Reports normal rate GASTROINTESTINAL Abdominal: Reports soft, Reports nontender, Reports bowel sounds normal GENITOURINARY Genitourinary: Reports exam deferred SKIN Skin: Reports warm, Reports dry MUSCULOSKELETAL Musculoskeletal: Reports ROM normal, Reports tenderness (R dosral foot); Denies deformity NEUROLOGICAL Neurological: Reports alert, Reports oriented x 3, Reports no gross motor or sensory deficits PSYCHOLOGICAL Psychological: Reports mood/affect normal, Reports judgement normal Results Imaging Imaging results reviewed: Yes Impressions [place] [id number] Patient Name: ELANA GONGORA MR #: [id number] : 1990 Age/Sex: 28/M Req #: [id number] Adm Physician: Ordered by: JANETT GAINES DO Report #: [id number] Location: ER Room/Bed: Procedure: [id number] DX/FOOT LEFT COMPLETE Exam Date: 09/14/19 Exam Time: 2250 REPORT STATUS: Signed FOOT LEFT COMPLETE - 3 views HISTORY: Pain COMPARISON: None available. FINDINGS: Bones: No acute displaced fracture. Osseous alignment is within normal limits. Incidentally seen os trigonum. Joints: The joint spaces are well-maintained. Soft tissues: The soft tissues appear unremarkable. IMPRESSION: No acute radiographic abnormality. Signed by: Dr. Gianfranco Dallas MD on 09/14/2019 11:31 PM Dictated By: GIANFRANCO DALLAS MD 30 Transcribed By: GARCIA on 09/14/192330 COPY TO: JANETT GAINES DO~ Assessment & Plan Medical Decision Making MDM X-rays reviewed with patient to r/o foot fracture. Dispensed rigid surgical shoe. Rx Tylenol #3 and plan to discharge to home with f/u with Dr Roe DPKamla Assessment & Plan Final Impression: (1) Contusion of right foot Depart Disposition: HOME, SELF-CARE Last Vital Signs Date Time Temp Pulse Resp B/P (MAP) Pulse Ox O2 Delivery O2 Flow Rate FiO2 09/14/19 23:11 98.1 88 17 127/69 100 Home Meds Active Scripts Pantoprazole Sodium* (PROTONIX) 40 Mg Tablet.dr, 40 MG PO DAILY for 30 Days, TAB Prov:ANKUR CELESTE MD 11/12/17 Levofloxacin (LEVAQUIN) 500 Mg Tablet, 500 MG PO DAILY for 7 Days Prov:ANKUR CELESTE MD 11/12/17 Metronidazole (FLAGYL) 500 Mg Tablet, 500 MG PO TID for 7 Days Prov:ANKUR CELESTE MD 11/12/17 Reported Medications Hydrocodone Bit/Acetaminophen (NORCO 10-325 TABLET) 1 Each Tablet, 1-2 TAB PO Q4H PRN for PAIN 11/06/17 Ondansetron (ZOFRAN ODT) 4 Mg Tab.rapdis, 4 MG SL Q6H PRN for NAUSEA, TAB 11/06/17 JANETT GAINES DO Sep 14, 2019 23:50
[2019-09-15 00:08] VITALS: BP 127/77
== END 2019-09-15 00:10 | disposition home or self-care (01) ==
LOC: ER 22:37
DX: S90.31XA Contusion of right foot, initial encounter (principal); W24.0XXA Contact with lifting devices, not elsewhere classified, initial encounter
CPT/HCPCS: 73630; 99283; J2270

== ENCOUNTER 2021-03-09 16:53 | Inpatient (IN) | payer OTHER ==
[~2021-03-09] VITALS: Ht 185.4 cm; Wt 137.0 kg
[2021-03-09] MEDS ORDERED: ONDANSETRON HCL INJ 2MG/ML 2ML 2 MG/ML VIAL IV ONE (17:13)
[2021-03-09] MEDS ORDERED: SODIUM CHLORIDE 0.9% 1000ML 1,000 ML IV ONE (17:15)
[2021-03-09] MEDS ORDERED: Morphine 4mg Syringe 4 MG/ML INJ IV ONE (17:15)
[2021-03-09 17:24] LABS: BASOPHILS % 0.2 % (0.0-1.0); EOSINOPHILS # (AUTO) 0.2 (0.0-0.4); EOSINOPHILS % 1.1 % (0.0-6.0); HEMATOCRIT 42.9 % (38.2-49.6); HEMOGLOBIN 14.3 g/dL (14.0-18.0); LYMPHOCYTES # (AUTO) 2.8 (1.0-3.2); LYMPHOCYTES % 16.6 % (18.0-39.1); MEAN CORPUSCULAR HEMOGLOBIN 29.4 pg (28-32); MEAN CORPUSCULAR HGB CONC 33.3 g/dL (31-35); MEAN CORPUSCULAR VOLUME 88.3 fL (81-99); MONOCYTES # (AUTO) 1.3 (0.2-0.8); NEUTROPHILS # (AUTO) 12.2 (2.1-6.9); NEUTROPHILS % 73.8 % (38.7-80.0); PLATELET COUNT 323 x10e3/uL (140-360); RED BLOOD COUNT 4.86 x10e6/uL (4.3-5.7); RED CELL DISTRIBUTION WIDTH 12.3 % (11.7-14.4)
[2021-03-09] MEDS ORDERED: DIATRIZOATE MEGL/DIATRIZOA SOD 30 ML BTL PO ONE (17:35)
[2021-03-09 17:39] LABS: AMYLASE 33 U/L (25-125); LIPASE 25 U/L (8-78)
[2021-03-09 17:41] LABS: ALBUMIN 4.2 g/dL (3.5-5.0); ANION GAP 12.7 mmol/L (8-16); CALCIUM 9.1 mg/dL (8.4-10.2); CREATININE, SERUM 0.71 mg/dL (0.72-1.25); POTASSIUM 3.7 mmol/L (3.5-5.1)
[2021-03-09] MEDS ORDERED: SODIUM CHLORIDE 0.9% 50ML 50 ML ONE (18:03)
[2021-03-09] MEDS ORDERED: IOPAMIDOL 370 MG/ML 200 ML INFUS..BTL INJ ONE (18:03)
[2021-03-09] MEDS: PIPERACILLIN/TAZOBACTAM 3.375 GM in SODIUM CHLORIDE 0.9% 50ML 50 ML IV SCH (18:54)
[2021-03-09] MEDS ORDERED: Morphine 2mg Syringe 2 MG/ML SYR IV PRN (19:30)
[2021-03-09] MEDS: Morphine 4mg Syringe 4 MG/ML INJ IV PRN (20:00)
[2021-03-09 22:00] VITALS: BP 112/75
[2021-03-09] MEDS: SODIUM CHLORIDE 0.9% 1000ML 1,000 ML IV SCH (23:00)
[2021-03-09] MEDS ORDERED: INFLUENZA VIRUS VAC SPLIT INJ 0.5 ML SYR IM ONE (23:45)
[2021-03-10] VITALS (7 sets, daily range): BP systolic 112–125; BP diastolic 60–76
[2021-03-10] MEDS: Morphine 4mg Syringe 4 MG/ML INJ IV PRN ×6 (04:00→23:15)
[2021-03-10 04:57] LABS: BASOPHILS % 0.3 % (0.0-1.0); EOSINOPHILS # (AUTO) 0.2 (0.0-0.4); EOSINOPHILS % 1.4 % (0.0-6.0); HEMATOCRIT 39.1 % (38.2-49.6); HEMOGLOBIN 12.7 g/dL (14.0-18.0); LYMPHOCYTES # (AUTO) 2.5 (1.0-3.2); LYMPHOCYTES % 17.1 % (18.0-39.1); MEAN CORPUSCULAR HEMOGLOBIN 29.3 pg (28-32); MEAN CORPUSCULAR HGB CONC 32.5 g/dL (31-35); MEAN CORPUSCULAR VOLUME 90.3 fL (81-99); MONOCYTES # (AUTO) 1.2 (0.2-0.8); MONOCYTES % 7.8 % (4.4-11.3); NEUTROPHILS # (AUTO) 10.8 (2.1-6.9); PLATELET COUNT 294 x10e3/uL (140-360); RED BLOOD COUNT 4.33 x10e6/uL (4.3-5.7); RED CELL DISTRIBUTION WIDTH 12.4 % (11.7-14.4)
[2021-03-10 05:24] LABS: ALBUMIN 3.8 g/dL (3.5-5.0); ALBUMIN/GLOBULIN RATIO 1.1 (0.8-2.0); ANION GAP 14.5 mmol/L (8-16); CALCIUM 8.9 mg/dL (8.4-10.2); CREATININE, SERUM 0.71 mg/dL (0.72-1.25); POTASSIUM 3.5 mmol/L (3.5-5.1)
[2021-03-10] MEDS: PIPERACILLIN/TAZOBACTAM 3.375 GM in SODIUM CHLORIDE 0.9% 50ML 50 ML IV SCH ×5 (06:53→17:19)
[2021-03-10] MEDS: SODIUM CHLORIDE 0.9% 1000ML 1,000 ML IV SCH ×3 (06:53→19:30)
[2021-03-10] MEDS: ONDANSETRON HCL INJ 2MG/ML 2ML 2 MG/ML VIAL IV PRN ×4 (08:33→18:00)
[2021-03-10] MEDS ORDERED: SODIUM CHLORIDE 0.9% 50ML 50 ML ONE (13:25)
[2021-03-10] MEDS ORDERED: PIPERACILLIN/TAZOBACTAM 3.375 GM VIAL ONE (17:05)
[2021-03-11] VITALS (7 sets, daily range): BP systolic 123–133; BP diastolic 62–80
[2021-03-11] MEDS: SODIUM CHLORIDE 0.9% 1000ML 1,000 ML IV SCH ×4 (02:44→22:40)
[2021-03-11] MEDS: Morphine 4mg Syringe 4 MG/ML INJ IV PRN ×4 (05:35→21:35)
[2021-03-11] MEDS: PIPERACILLIN/TAZOBACTAM 3.375 GM in SODIUM CHLORIDE 0.9% 50ML 50 ML IV SCH ×5 (05:47→18:15)
[2021-03-11 06:00] LABS: BASOPHILS % 0.2 % (0.0-1.0); EOSINOPHILS # (AUTO) 0.2 (0.0-0.4); EOSINOPHILS % 1.6 % (0.0-6.0); HEMATOCRIT 38.2 % (38.2-49.6); HEMOGLOBIN 12.3 g/dL (14.0-18.0); LYMPHOCYTES % 16.7 % (18.0-39.1); MEAN CORPUSCULAR HEMOGLOBIN 29.3 pg (28-32); MEAN CORPUSCULAR HGB CONC 32.2 g/dL (31-35); MONOCYTES # (AUTO) 0.9 (0.2-0.8); MONOCYTES % 7.7 % (4.4-11.3); NEUTROPHILS # (AUTO) 8.8 (2.1-6.9); NEUTROPHILS % 73.5 % (38.7-80.0); PLATELET COUNT 284 x10e3/uL (140-360); RED CELL DISTRIBUTION WIDTH 12.1 % (11.7-14.4)
[2021-03-11] MEDS ORDERED: BISACODYL 10 MG SUPP PR ONE (06:15)
[2021-03-11] MEDS: HEPARIN SOD (PORCINE) 5,000 UNIT/ML VIAL SC SCH (21:00)
[2021-03-12] VITALS: BP 130/76
[2021-03-12] MEDS: PIPERACILLIN/TAZOBACTAM 3.375 GM in SODIUM CHLORIDE 0.9% 50ML 50 ML IV SCH ×3 (00:43→11:05)
[2021-03-12 04:00] VITALS: BP 108/70
[2021-03-12 06:12] LABS: BASOPHILS % 0.5 % (0.0-1.0); EOSINOPHILS # (AUTO) 0.2 (0.0-0.4); EOSINOPHILS % 2.5 % (0.0-6.0); HEMATOCRIT 38.1 % (38.2-49.6); HEMOGLOBIN 12.5 g/dL (14.0-18.0); LYMPHOCYTES % 25.7 % (18.0-39.1); MEAN CORPUSCULAR HEMOGLOBIN 29.1 pg (28-32); MEAN CORPUSCULAR HGB CONC 32.8 g/dL (31-35); MEAN CORPUSCULAR VOLUME 88.8 fL (81-99); MONOCYTES # (AUTO) 0.7 (0.2-0.8); MONOCYTES % 9.2 % (4.4-11.3); NEUTROPHILS # (AUTO) 4.7 (2.1-6.9); NEUTROPHILS % 61.7 % (38.7-80.0); PLATELET COUNT 307 x10e3/uL (140-360); RED BLOOD COUNT 4.29 x10e6/uL (4.3-5.7)
[2021-03-12 06:42] LABS: ALBUMIN 3.4 g/dL (3.5-5.0); ALBUMIN/GLOBULIN RATIO 0.9 (0.8-2.0); ANION GAP 14.3 mmol/L (8-16); CALCIUM 9.1 mg/dL (8.4-10.2); CREATININE, SERUM 0.78 mg/dL (0.72-1.25); POTASSIUM 3.3 mmol/L (3.5-5.1)
[2021-03-12 07:59] VITALS: BP 128/74
[2021-03-12] MEDS: HEPARIN SOD (PORCINE) 5,000 UNIT/ML VIAL SC SCH (09:00)
[2021-03-12 09:15] VITALS: BP 128/74
[2021-03-12] MEDS ORDERED: PANTOPRAZOLE SO40 MG PO (09:50)
[2021-03-12] MEDS ORDERED: AUGMENTIN 875-1 EACH PO (09:51)
[2021-03-12] MEDS ORDERED: POTASSIUM CHLORIDE 20 MEQ TAB CR PO ONE (10:30)
[2021-03-12] MEDS: SODIUM CHLORIDE 0.9% 1000ML 1,000 ML IV SCH (10:42)
[2021-03-12 12:06] VITALS: BP 135/69
[2021-03-12] MEDS: Morphine 4mg Syringe 4 MG/ML INJ IV PRN (13:08)
[2021-03-12] MEDS ORDERED: ONDANSETRON HCL 4 MG ORAL DISINTEGRATING TAB PO PRN (13:15)
[2021-03-12] MEDS ORDERED: PANTOPRAZOLE SOD 40 MG TABEC PO SCH (20:30)
== END 2021-03-12 15:02 | disposition home or self-care (01) | DRG 392 ==
LOC: ER 17:07 → ERHOLD 19:25 → MED/SURG2 21:41 → OBSVTOIN 03-11 09:39
PROVIDERS: ADMIT Internal Medicine; ATTEND Internal Medicine
DX: K57.32 Diverticulitis of large intestine without perforation or abscess without bleeding (principal); E66.9 Obesity, unspecified; K21.9 Gastro-esophageal reflux disease without esophagitis; K76.0 Fatty (change of) liver, not elsewhere classified; Z68.39 Body mass index [BMI] 39.0-39.9, adult; Z20.822 Contact with and (suspected) exposure to COVID-19
CPT/HCPCS: 36415; 74177; 80053; 82150; 83605; 83690; 85025; 87040; 94799; 96360; 96361; 99284; G0378; J1644; J2270; J2405; J2543; J7030; Q9967; U0002